=== PATIENT | female | born 1955 | race Hispanic/Latino ===

== ENCOUNTER 2017-03-24 09:20 | Day surgery (SDC) | payer OTHER ==
[~2017-03-24 09:20] MED LIST: ANCEF/STERILE WATER 2 GM/20 ML IV NR
--- NOTE | 2017-03-24 11:41 | Anesthesia Day of Surgery ---
Anesthesia Day of Surgery - Day of Surgery Patient Examined: Yes Patient H&P Reviewed: Yes Patient is NPO: Yes
[2017-03-24] MEDS ORDERED: SUBLIMAZE IV PRN (11:43)
[2017-03-24] MEDS ORDERED: DILAUDID IV PRN ×2 (11:43→17:00)
--- NOTE | 2017-03-24 11:43 | Anesthesia Consultation ---
Anesthesia Consult and Med Hx Date of service: 03/24/17 - Airway Anesthetic Teeth Evaluation: Chipped ROM Head & Neck: Adequate Mental/Hyoid Distance: Adequate Mallampati Class: Class II Intubation Access Assessment: Probably Good - Pulmonary Exam CTA: Yes - Cardiac Exam Cardiac Exam: RRR - Pre-Operative Health Status ASA Pre-Surgery Classification: ASA2 Proposed Anesthetic Plan: General - Pulmonary Hx Smoking: No Hx Sleep Apnea: No (RHODA PRE SCREEN LOW RISK) - Cardiovascular System Hx Hypertension: No Hx Coronary Artery Disease: No (cleared-neg cath per pt) - Gastrointestinal Hx Gastroesophageal Reflux Disease: Yes (no problem on meds) - Endocrine Hx Renal Disease: Yes (s/p partial nephrectomy) - Other Systems Hx Cancer: Yes (s/p breast cancer)
[2017-03-24] MEDS ORDERED: NACL BACTERIOSTATIC INFILTRATI ONE (11:49)
[2017-03-24] MEDS ORDERED: ZOFRAN IV PRN ×2 (12:00→17:00)
[2017-03-24] MEDS ORDERED: PEPCID IV NR (12:00)
[2017-03-24] MEDS ORDERED: TRANSDERM-SCOP TD NR (12:00)
[2017-03-24] MEDS ORDERED: NACL 0.9% 1000 ML 1,000 ML IV SCH (12:00)
[2017-03-24] MEDS ORDERED: XYLOCAINE MPF 2% ONE (14:46)
[2017-03-24] MEDS ORDERED: PROAIR IH ONE (14:46)
[2017-03-24] MEDS ORDERED: SUBLIMAZE ONE (14:47)
[2017-03-24] MEDS ORDERED: DIPRIVAN 10 MG/ML IV ONE (14:48)
[2017-03-24] MEDS ORDERED: ADRENALIN ONE ×2 (15:12→15:29)
[2017-03-24] MEDS ORDERED: MARCAINE 0.5% 0 ML INFILTRATI ONE (15:29)
[2017-03-24] MEDS ORDERED: XYLOCAINE 1% 20 mL ONE (15:29)
[2017-03-24] MEDS ORDERED: SUBLIMAZE IV SCH (15:30)
[2017-03-24] MEDS ORDERED: MARCAINE 0.25% INFILTRATI ONE (15:31)
[2017-03-24] MEDS ORDERED: XYLOCAINE 1% 20 mL INFILTRATI ONE (15:54)
[2017-03-24] MEDS ORDERED: ADRENALIN IV ONE (15:54)
[2017-03-24] MEDS ORDERED: MARCAINE-EPI 0.25%-1:200,000 INFILTRATI ONE (15:54)
[2017-03-24] MEDS ORDERED: DECADRON ONE (16:25)
[2017-03-24] MEDS ORDERED: ZOFRAN ONE (16:37)
[2017-03-24] MEDS ORDERED: DILAUDID ONE (16:43)
--- NOTE | 2017-03-24 16:44 | Procedure Note ---
Date of procedure: 03/24/17 Pre-op diagnosis: medial and lateral meniscus tear Post-op diagnosis: same Procedure: right knee arthroscopy with partial medial and lateral menisectomies Anesthesia: GETA Surgeon: ANAHI CONNELL III Estimated blood loss: none Pathology: none Condition: stable Disposition: PACU
--- NOTE | 2017-03-24 16:44 | Post Anesthesia Evaluation ---
- Post Anesthesia Evaluation Patient Participated: Yes Airway Patent: Yes Stable Respiratory Function: Yes Nausea/Vomiting: No Temp > 96.8F: Yes Pain Manageable: Yes Adequeate Hydration: Yes Anesthesia Complications: No Block Receding Appropriately: Not Applicable Patient on Ventilator: No
[2017-03-24] MEDS ORDERED: TORADOL IV PRN (17:00)
[2017-03-24 18:07] VITALS: BP 133/65
--- NOTE | 2017-03-24 20:47 | Operative Report ---
PREOPERATIVE DIAGNOSIS: Lateral meniscus tear and medial meniscus tear. POSTOPERATIVE DIAGNOSIS: Lateral meniscus tear and medial meniscus tear. PROCEDURE: Right knee arthroscopy with medial and lateral partial meniscectomy. SURGEON: Shun Wilson III, MD ANESTHESIA: General. ESTIMATED BLOOD LOSS: Zero. TOURNIQUET TIME: 35 minutes. OPERATIVE REPORT: The patient is a 61-year-old female who presented to [place] two months after a right knee injury, which she sustained at work. The patient failed conservative treatment of anti-inflammatories and physical therapy and had continued knee pain. MRI showed a lateral meniscus tear of the medial aspect of the body as well as posterior horn and a posterior body tear of the medial meniscus. The patient elected to have a right knee arthroscopic surgery to remove these tears. DESCRIPTION OF PROCEDURE: The patient was seen in the preoperative holding area. Limb was marked and signed and the H and P was reviewed. The patient was taken back to the operating room theater and placed supine on the operating room table and placed under general anesthesia by the awning spreader. Tourniquet was placed on the right upper thigh. A 50 mL of local anesthetic, 30 mL of 0.25% Marcaine and 20 mL of 1% lidocaine were injected into the knee through the lateral suprapatellar location. Right leg was prepped and draped in the usual manner with chlorhexidine solution. The limb was elevated, Esmarched, and the tourniquet was inflated to 250 mmHg. Standard anterolateral incision was made and the trocar was placed in the suprapatellar pouch. Diagnostic scope was done in suprapatellar pouch. The patient had grade 2 and 3 changes on the medial and lateral facet of the patella as well as grade 3 changes in the trochlea. Medial and lateral gutters were empty of any loose bodies. Camera was placed in the medial compartment and an anterior medial portal was made using a spinal needle for placement. There was a horizontal tear of the medial meniscus which was removed with arthroscopic biters and arthroscopic kenan. The medial meniscus was probed after the meniscectomy and it was found to be stable. There were grade 2 changes on the tibia of the medial compartment. No arthritis on the medial femoral condyle. ACL was frayed, but intact and the patient was placed in [id number] position and the camera was placed in the lateral compartment. The patient had a tear of the posterior horn of the lateral meniscus as well as a tear in the body of the middle aspect of the lateral meniscus. Lateral meniscus was saucerized using meniscal bitters and kenan taken back to a stable rim and probed at the end and it was deemed to be very stable. Of note, the patient had grade 4 changes on the lateral aspect of her lateral femoral condyle as well as the lateral aspect of her lateral tibial plateau. Trocar was placed back in the suprapatellar pouch. Water was evacuated through the cannula. Portal incisions were closed with 3-0 Monocryl in subcuticular fashion followed by Steri-Strips, Adaptic, 4 x 4s, ABDs, fluff, and an Wu bandage. Cryotherapy unit was applied to the knee. The patient was transferred from the operating room table to the hospital bed and taken to PACU in stable condition under the care of Anesthesia. The patient will follow up in clinic in 1 week. JOB# [id number] JODIE/ANDREW
== END 2017-03-24 18:25 | disposition home or self-care (01) ==
LOC: OR 09:20
PROVIDERS: ATTEND Orthopaedic Surgery Sports Medicine
DX: S83.281A Other tear of lateral meniscus, current injury, right knee, initial encounter (principal); S83.241A Other tear of medial meniscus, current injury, right knee, initial encounter; W01.0XXA Fall on same level from slipping, tripping and stumbling without subsequent striking against object, initial encounter; Y93.89 Activity, other specified; Y92.239 Unspecified place in hospital as the place of occurrence of the external cause; Y99.9 Unspecified external cause status; Z88.8 Allergy status to other drugs, medicaments and biological substances; K21.9 Gastro-esophageal reflux disease without esophagitis; Z90.5 Acquired absence of kidney; Z85.3 Personal history of malignant neoplasm of breast; Z79.899 Other long term (current) drug therapy
CPT/HCPCS: 29880; J0171; J0690; J1100; J1170; J1885; J2405; J2704; J3010; J7030